=== PATIENT | female | born 2000 | race Asian ===

== ENCOUNTER 2024-10-06 19:33 | Emergency (ER) | payer OTHER ==
[~2024-10-06] VITALS: Ht 162.6 cm; Wt 55.0 kg
[2024-10-06 19:35] VITALS: RESP 18; O2SAT 99
[2024-10-06] MEDS: ACETAMINOPHEN 325MG TABLET PO ONE (20:31)
[2024-10-06 21:50] VITALS: BP 119/72; PULSE 94; TEMP 36.8; O2SAT 100
== END 2024-10-06 22:19 | disposition home or self-care (01) ==
LOC: ER 19:33
DX: S09.8XXA Other specified injuries of head, initial encounter (principal); Y04.0XXA Assault by unarmed brawl or fight, initial encounter; Y93.89 Activity, other specified; Y92.89 Other specified places as the place of occurrence of the external cause; Y99.8 Other external cause status
CPT/HCPCS: 99284